=== PATIENT | male | born 1965 | race Caucasian/White ===

== ENCOUNTER → 2021-01-08 | Day surgery (SDC) | payer MEDICARE ==
[~2021-01-08] MED LIST: CLONIDINE HCL0.1 M1 PO; HUMULIN 70100 UNIT/2 SUBQ; LASIX 80 MG TAB80 MG PO; LOSARTAN POTASS50 MG PO; NORCO5 PO
--- NOTE | ~2021-01-08 | OP ---
[facility] [address] [place] [address] OPERATIVE REPORT Name: JOEL ESPARZA Room: [facility] M.R.#: [id number] Admission: 01/08/21 Attend Phys: Juan Real Discharge: Date of : 67 Report #: [id number] THIS REPORT FOR: cc: WILBER HUBBARD MD Physician not on staff Juan Real MD ~ DATE OF SURGERY: 01/08/2021 PREOPERATIVE DIAGNOSIS: End-stage renal disease. POSTOPERATIVE DIAGNOSIS: End-stage renal disease. OPERATIONS: 1. Laparoscopic placement of tunneled intraperitoneal catheter. 2. Laparoscopic omentopexy. SURGEON: Juan Real MD ANESTHESIA: General. ESTIMATED BLOOD LOSS: Minimal. SPECIMENS: None. DESCRIPTION OF PROCEDURE: After informed consent was obtained, the patient was brought to the operating room and placed supine. SCDs were placed and working, preoperative antibiotics were administered, general anesthesia was induced. The abdomen was prepped and draped in the usual sterile fashion. A 5 mm incision was made in the left upper quadrant. A 5 mm trocar was placed under direct vision. Pneumoperitoneum was established. Left-sided 5 mm trocar was placed. The omentum was grasped and brought up to the right upper quadrant. A 2-0 Vicryl suture was used using a suture passer to pass it through the skin and then through the omentum and then back out through the skin. This was tied down and completed the omentopexy. An 8 mm trocar was placed in the left rectus sheath. A 62 cm Covidien catheter was placed. Catheter was then tunneled to the left upper quadrant of the abdomen. It flushed and easily with 750 mL of heparinized saline. A 250 mL drained out very easily. The ports were then removed under direct vision. The skin was closed with 4-0 Monocryl. Incisions were dressed with Steri-Strips. COMPLICATIONS: [place] [address] OPERATIVE REPORT Name: JOEL ESPARZA Room: [facility]#: [id number] Admission: 01/08/21 Attend Phys: Juan Real Discharge: Date of : 67 Report #: [id number] DISPOSITION: The patient was taken to recovery in satisfactory condition. By: [id number] Real MD /charlene
[2021-01-08 06:42] LABS: HEMATOCRIT 30.1 % (42.0-52.0); HEMOGLOBIN 10.1 gm/dL (14.0-18.0); MCH 29.7 pg (26.0-34.0); MCHC 33.5 g/dL (28.0-37.0); MCV 88.7 fL (80.0-100.0); MPV 6.7 fl. (7.2-11.1); RBC 3.39 mil/uL (4.50-6.00); RDW-CV 14.7 % (10.5-14.5); WBC 6.6 thou/uL (4.0-11.0)
[2021-01-08 06:52] LABS: CALCIUM 8.1 mg/dL (8.5-10.1); CREATININE 7.3 mg/dL (0.6-1.3); POTASSIUM 3.5 mmol/L (3.5-5.1)
--- NOTE | 2021-01-08 13:34 | EKG ---
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
== END | disposition home or self-care (01) ==
LOC: M.SUR 06:12
PROVIDERS: ATTEND Surgery
DX: N18.6 End stage renal disease (principal); Z98.890 Other specified postprocedural states; Z20.822 Contact with and (suspected) exposure to COVID-19; Z79.899 Other long term (current) drug therapy; Z79.4 Long term (current) use of insulin